=== PATIENT | female | born 1985 | race Caucasian/White ===

== ENCOUNTER 2016-08-03 14:20 | Emergency (ER) | payer MEDICAID ==
[2016-08-03] MEDS ORDERED: ENOXAPARIN 80 MG/0.8 ML SYRINGE SUBQ STA (17:45)
[2016-08-03] MEDS ORDERED: ENOXAPARIN 80 MG/0.8 ML SYRINGE SUBQ ONE (17:49)
== END 2016-08-03 17:56 | disposition home or self-care (01) ==
DX: I82.411 Acute embolism and thrombosis of right femoral vein (principal); I82.431 Acute embolism and thrombosis of right popliteal vein; D68.51 Activated protein C resistance; Z86.711 Personal history of pulmonary embolism; Z86.718 Personal history of other venous thrombosis and embolism; Z91.14 Patient's other noncompliance with medication regimen
CPT/HCPCS: 36415; 80048; 84703; 85025; 93971; 96372; 99283; 99284; J1650

== ENCOUNTER 2016-08-05 15:02 | Outpatient (CLI) | payer MEDICAID | END 2016-08-05 15:03 | disposition home or self-care (01) | DX: I82.90 Acute embolism and thrombosis of unspecified vein (principal) ==

== ENCOUNTER 2016-08-08 10:14 | Outpatient (CLI) | payer MEDICAID | END 2016-08-08 10:15 | disposition home or self-care (01) | DX: I82.90 Acute embolism and thrombosis of unspecified vein (principal) ==

== ENCOUNTER 2016-08-12 19:47 | Outpatient (CLI) | payer MEDICAID | END 2016-08-12 19:48 | disposition home or self-care (01) | DX: I82.90 Acute embolism and thrombosis of unspecified vein (principal) ==

== ENCOUNTER 2016-09-02 | Outpatient (CLI) | payer MEDICAID | END 2016-09-02 07:56 | disposition EMS.NT ==

== ENCOUNTER 2019-03-22 18:57 | Outpatient (CLI) | payer MEDICAID ==
--- NOTE | 2019-03-23 13:31 | Ultrasound Report ---
Reason: TEST POSITIVE Procedure Date: 03/22/2019 Accession Number: [id number] / [id number] Procedure: US - OB First Trimester CPT Code: FULL RESULT: EXAM: FIRST TRIMESTER OBSTETRIC ULTRASOUND (Less than 11 weeks) EXAM DATE: 03/22/2019 08:00 PM. CLINICAL HISTORY: Positive test. LMP: 01/18/2019. COMPARISONS: None. TECHNIQUE: Transabdominal and transvaginal ultrasound examination with static image documentation. CLINICAL DATES: EGA 9 weeks 0 days with NIRALI 10/25/2019 based on LMP/prior ultrasound/other. ASSESSMENT: Gestational Sac: Single intrauterine. Mean gestational sac diameter: 49 mm = 10 weeks 4 days. Embryo: CRL (crown-rump length) 31 mm = 9 weeks 6 days. Cardiac activity: 166 beats per minute. Yolk sac: 6 mm. Amniotic fluid: Not accurately assessed at this gestational age. Early placenta: Not visible at this gestational age. Other: No perigestational fluid collection demonstrated. MATERNAL STRUCTURES: Uterus: Anteverted/Retroverted. Unremarkable. Cervix: Closed. Right Ovary/Adnexa: The ovary measures 3.6 x 1 x 2.5 cm, volume 4.7 cc. Unremarkable. Left Ovary/Adnexa: The ovary measures 3.1 x 1.4 x 2.2 cm, volume 5.2 cc. Unremarkable. Free Fluid: None. Other: None. IMPRESSION: 1. Single viable intrauterine at EGA 9 weeks 6 days with NIRALI 10/19/2019 based on crown-rump length, which is concordant with clinical dates. 2. Assigned dating is NIRALI 9 weeks 0 days based on LMP. CHARLIE
== END 2019-03-22 18:58 | disposition home or self-care (01) ==
LOC: DI 18:57
PROVIDERS: ATTEND Obstetrics & Gynecology
DX: Z32.01 Encounter for pregnancy test, result positive (principal)
CPT/HCPCS: 76801; 76817

== ENCOUNTER 2019-04-21 08:00 | Outpatient (CLI) | payer MEDICAID ==
[2019-04-21 14:23] LABS: MUDS CUTOFF CONCENTRATIONS CUTOFF CONC BELOW:
[2019-04-21 14:26] LABS: BILIRUBIN,URINE NEGATIVE (NEGATIVE); GLUCOSE, URINE (UA) NEGATIVE (NEGATIVE); KETONES,URINE (UA) NEGATIVE (NEGATIVE); LEUKOCYTE ESTERASE, URINE NEGATIVE (NEGATIVE); NITRITE,URINE NEGATIVE (NEGATIVE); OCCULT BLOOD,URINE NEGATIVE (NEGATIVE); PH,URINE 6.5 PH (5.0-7.5); PROTEIN,URINE NEGATIVE (NEGATIVE); UROBILINOGEN,URINE 0.2 (NORMAL) E.U./dL (NORMAL)
[2019-04-21 14:34] LABS: BACTERIA,URINE None Seen /HPF (None Seen); CLARITY,URINE CLEAR (CLEAR); RBC,URINE None Seen /HPF (0-5); SQUAMOUS EPITHELIAL CELL,UR FEW Squamous (<= Few)
[2019-04-21 14:35] LABS: AMPHETAMINE SCREEN,URINE NEGATIVE (NEGATIVE); BENZODIAZEPINES SCREEN, URINE NEGATIVE (NEGATIVE); COCAINE SCREEN URINE NEGATIVE (NEGATIVE); METHADONE SCREEN, URINE NEGATIVE (NEGATIVE); METHAMPHETAMINES SCREEN, URINE NEGATIVE (NEGATIVE); OPIATE SCREEN, URINE NEGATIVE (NEGATIVE); OXYCODONE SCREEN, URINE NEGATIVE (NEGATIVE); PROPOXYPHENE SCREEN, URINE NEGATIVE (NEGATIVE); TRICYCLIC ANTIDEPRESSANT,URINE NEGATIVE (NEGATIVE)
[2019-04-21 21:40] LABS: TRICHOMONAS VAGINALIS DNA NEGATIVE (NEGATIVE)
== END 2019-04-21 23:59 | disposition home or self-care (01) ==
LOC: LAB.R 08:00
PROVIDERS: ATTEND Obstetrics & Gynecology
DX: Z34.80 Encounter for supervision of other normal pregnancy, unspecified trimester (principal); Z36.89 Encounter for other specified antenatal screening
CPT/HCPCS: 80306; 81001; 87086; 87491; 87591; 87661

== ENCOUNTER 2019-06-30 13:00 | Outpatient (CLI) | payer MEDICAID ==
[2019-06-30 13:27] LABS: BASOPHILS # (AUTO) 0.1 10^3/uL (0.0-0.1); BASOPHILS % (AUTO) 0.4 %; EOSINOPHILS # (AUTO) 0.3 10^3/uL (0.0-0.7); EOSINOPHILS % (AUTO) 2.3 %; HGB - HEMOGLOBIN 12.3 g/dL (12.0-16.0); LYMPHOCYTES # (AUTO) 2.1 10^3/uL (1.5-3.5); LYMPHOCYTES % (AUTO) 18.2 %; MEAN CORPUSCULAR HEMOGLOBIN 29.1 pg (27.0-31.0); MEAN CORPUSCULAR HGB CONC 33.6 g/dL (32.0-36.0); MEAN CORPUSCULAR VOLUME 86.7 fL (81.0-99.0); MEAN PLATELET VOLUME 9.7 fL (7.9-10.8); MONOCYTES # (AUTO) 0.7 10^3/uL (0.0-1.0); MONOCYTES % (AUTO) 6.1 %; NEUTROPHILS # (AUTO) 8.4 10^3/uL (1.5-6.6); NEUTROPHILS % (AUTO) 72.6 %; PLT - PLATELET COUNT 305 10^3/uL (130-450); RED BLOOD COUNT 4.22 10^6/uL (4.20-5.40); RED CELL DISTRIBUTION WIDTH 13.2 % (12.0-15.0); WHITE BLOOD COUNT 11.6 x10^3/uL (4.8-10.8)
[2019-06-30 13:33] LABS: PT - PROTHROMBIN TIME 10.9 secs (9.9-12.6)
[2019-06-30 14:10] LABS: HB2 TOTAL 12.3 g/dL; HEMOGLOBIN A1C 0.47 g/dL; HEMOGLOBIN A1C % 5.6 % (4.6-6.2)
[2019-07-01 13:30] LABS: HIV AG/AB 4TH GEN NON-REACTIVE (NON-REACTIVE)
[2019-07-01 13:46] LABS: HEPATITIS B SURFACE ANTIGEN NON-REACTIVE (NON-REACTIVE)
[2019-07-01 13:47] LABS: HEPATITIS C ANTIBODY NON-REACTIVE (NON-REACTIVE)
== END 2019-06-30 13:01 | disposition home or self-care (01) ==
LOC: LAB 13:00
PROVIDERS: ATTEND Obstetrics & Gynecology
DX: O09.90 Supervision of high risk pregnancy, unspecified, unspecified trimester (principal); O22.30 Deep phlebothrombosis in pregnancy, unspecified trimester; I82.811 Embolism and thrombosis of superficial veins of right lower extremity; Z3A.00 Weeks of gestation of pregnancy not specified; Z36.89 Encounter for other specified antenatal screening
CPT/HCPCS: 36415; 81599; 82950; 83036; 85025; 85610; 86592; 86762; 86803; 86850; 86900; 86901; 87340; 87389

== ENCOUNTER 2019-07-07 12:45 | Outpatient (CLI) | payer MEDICAID ==
--- NOTE | 2019-07-11 11:08 | Ultrasound Report ---
Reason: ENCOUNTER FOR OTHER SPECIFIED SCR Procedure Date: 07/07/2019 Accession Number: [id number] / [id number] Procedure: US - OB Detailed Eval CPT Code: Final Report FULL RESULT: EXAM: COMPLETE OBSTETRICAL ULTRASOUND EXAM DATE: 07/07/2019 02:17 PM. CLINICAL HISTORY: anatomic survey. COMPARISON: OB FIRST TRIMESTER 03/22/2019 7:17 PM. TECHNIQUE: Real-time sonographic evaluation of the fetus performed by the fleshing machine operator. Multiple franchise sales representative static images were saved for review. Additional transvaginal imaging to more accurately evaluate cervical length/placental position/etc. DATING: Established EGA 25 weeks 1 day with NIRALI 10/19/2019 based on first ultrasound, working due date. EGA 25 weeks 2 days with NIRALI 10/18/2019 based on the current ultrasound. GENERAL EVALUATION [place] . Cardiac activity: 139 bpm. movement: Visualized. Presentation: Cephalic. Placenta: Anterior position. No evidence for previa. Umbilical cord: 3 vessel cord. Central placental cord origin. Amniotic fluid: Subjectively normal. MVP 5.6 cm and LEEANN 19.8 cm. BIOMETRY Bi-Parietal Diameter (BPD): 6.19 cm, 25 weeks 1 day Head Circumference (HC): 23.49 cm, 25 weeks 4 days Abdominal Circumference (AC): 21.15 cm, 25 weeks 5 days Femur Length (FL): 4.45 cm, 24 weeks 5 days Estimated Weight: 790 g, 45th percentile for 25 weeks 1 day. ANATOMY The intracranial structures, profile, face/nose/lips, spine, 4 chamber heart and outflow tracts, stomach, abdominal wall and cord insertion, diaphragm, kidneys, bladder, and extremities were visualized and demonstrate no abnormality. MATERNAL STRUCTURES Uterus: Unremarkable. Cervix: Long and closed. Transabdominal length 4.5 cm. Right ovary/adnexa: Unremarkable. Left ovary/adnexa: Unremarkable. Free fluid: None. IMPRESSION: 1. [place] live intrauterine with gestational age 25 weeks 1 day based on first ultrasound and working due date. 2. Estimated weight is within expected limits for assigned dating. 3. Normal anatomic survey. No anatomic abnormalities are detected at this time. RADIA
== END 2019-07-07 12:46 | disposition home or self-care (01) ==
LOC: DI 12:45
PROVIDERS: ATTEND Obstetrics & Gynecology
DX: Z34.82 Encounter for supervision of other normal pregnancy, second trimester (principal)
CPT/HCPCS: 76811

== ENCOUNTER 2019-10-04 03:11 | Outpatient (CLI) | payer MEDICAID ==
[2019-10-04 03:26] VITALS: BP 132/75
--- NOTE | 2019-10-04 05:42 | HISTORY & PHYSICAL EXAMINATION ---
Admit History - Visit Reason Visit Reason: Contractions, Other (34yo at 37 4/7 weeks who presents with one week h/o non-productive cough and URI symptoms. No fevers. C/O RUQ pain along the costal margin when she coughs. No n/v/f/c or dysuria, no vag bleeding or fluid leak. No contractions, normal activity. Reports her whole family is similarly afflicted.) - : 3 Parity: 1 Premature: 0 Ectopic: 0 : 1 Care: positive: Other ([facility]; planning ) Risk/History: positive: Previous , Other (H/O Pulmonary embolism 15 yrs ago; not anticoagulated (pt declined)) Complications This : positive: Other (Maternal obesity) Smoking Status: Never smoker - Mother's Labs Mother's Blood Type: positive: A Mother's RH: positive: Positive Rubella Status: positive: Immune (HIV/RPR/HepB NR GC/chlam neg) Meds/Allgy - Home Medications Home Medications: Ambulatory Orders Medication Instructions Recorded Confirmed Enoxaparin [Lovenox] 77 mg SUBQ Q12H #10 syringe 08/03/16 Warfarin [Coumadin] 5 mg PO 1400 #14 tablet 08/03/16 - Allergies Allergies/Adverse Reactions: Allergies Allergy/AdvReac Type Severity Reaction Status Date / Time gabapentin [From Neurontin] Allergy Anaphylaxis Verified 08/03/16 14:32 Review of Systems - Other Findings Other Findings: As noted above Physical - Abdominal Exam Vital Signs: Temp Pulse Resp BP Pulse Ox 98.4 F 87 18 132/75 H 100 10/04/19 03:25 10/04/19 03:25 10/04/19 03:25 10/04/19 03:25 10/04/19 03:25 Contraction Frequency (min/apart): None Uterine Resting Tone: positive: Soft - Monitoring Strip Review: positive: Category I - Presentation Presentation: positive: Vertex (By scan; normal LEEANN, placenta normal left anterior fundal. Active fetus) - Vaginal Exam Membranes: positive: Membranes intact Plan for Labor - Plan For Labor Plan for Labor: 34yo at 37 4/7 weeks with URI and musculoskeletal pain with cough. No acute OB process. COVID swab done. Discussed strategies to mitigate cough with natural products. Encouraged to stay well hydrated. Plan DC home. F/U as scheduled. Exam - Exam Vital Signs: Vital Signs (72 hours) 10/04/19 03:25 Temperature 98.4 F Heart Rate [ 87 Monitoring electrodes] Respiratory 18 Rate Blood Pressure 132/75 H [Left Brachial artery] O2 Saturation 100 General: Alert, Oriented x3, Cooperative Lungs: Clear to auscultation, Normal air movement, Other (No rales or wheezing) Cardiovascular: Regular rate (3/6 systolic murmur) Abdomen: Normal bowel sounds (no CVA or rib tenderness), Soft, No tenderness Skin: No rashes Neurological: Normal gait Psych/Mental Status: Mental status NL
== END 2019-10-04 05:45 | disposition home or self-care (01) ==
LOC: WFO 03:11 → FBP 03:13 → WFO 05:45
PROVIDERS: ATTEND Obstetrics & Gynecology
DX: O99.513 Diseases of the respiratory system complicating pregnancy, third trimester (principal); J06.9 Acute upper respiratory infection, unspecified; O99.89 Other specified diseases and conditions complicating pregnancy, childbirth and the puerperium; R10.12 Left upper quadrant pain; Z3A.37 37 weeks gestation of pregnancy
CPT/HCPCS: 81599; 99213

== ENCOUNTER 2020-12-21 13:41 | Outpatient (CLI) | payer MEDICAID | END 2020-12-21 13:42 | disposition home or self-care (01) | LOC: LAB 13:41 | PROVIDERS: ATTEND Obstetrics & Gynecology | DX: O46.91 Antepartum hemorrhage, unspecified, first trimester (principal) | CPT/HCPCS: 36415; 84702 ==

== ENCOUNTER 2020-12-26 11:03 | Outpatient (CLI) | payer MEDICAID ==
[2020-12-26 11:38] LABS: BASOPHILS % (AUTO) 0.6 %; EOSINOPHILS # (AUTO) 0.1 10^3/uL (0.0-0.7); EOSINOPHILS % (AUTO) 1.7 %; HCT - HEMATOCRIT 42.9 % (37.0-47.0); HGB - HEMOGLOBIN 14.4 g/dL (12.0-16.0); LYMPHOCYTES # (AUTO) 2.3 10^3/uL (1.5-3.5); LYMPHOCYTES % (AUTO) 32.7 %; MEAN CORPUSCULAR HGB CONC 33.6 g/dL (32.0-36.0); MEAN CORPUSCULAR VOLUME 83.5 fL (81.0-99.0); MEAN PLATELET VOLUME 9.5 fL (7.9-10.8); MONOCYTES # (AUTO) 0.5 10^3/uL (0.0-1.0); MONOCYTES % (AUTO) 7.6 %; NEUTROPHILS # (AUTO) 4.1 10^3/uL (1.5-6.6); NEUTROPHILS % (AUTO) 57.1 %; PLT - PLATELET COUNT 361 10^3/uL (130-450); RED BLOOD COUNT 5.14 10^6/uL (4.20-5.40); RED CELL DISTRIBUTION WIDTH 12.9 % (12.0-15.0); WHITE BLOOD COUNT 7.1 x10^3/uL (4.8-10.8)
[2020-12-27 14:01] LABS: HIV AG/AB 4TH GEN NON-REACTIVE (NON-REACTIVE)
[2020-12-27 14:37] LABS: HEPATITIS C ANTIBODY NON-REACTIVE (NON-REACTIVE)
[2020-12-27 14:51] LABS: HEPATITIS B SURFACE ANTIGEN NON-REACTIVE (NON-REACTIVE)
== END 2020-12-26 11:04 | disposition home or self-care (01) ==
LOC: LAB 11:03
PROVIDERS: ATTEND Obstetrics & Gynecology
DX: O99.419 Diseases of the circulatory system complicating pregnancy, unspecified trimester (principal); I82.811 Embolism and thrombosis of superficial veins of right lower extremity; Z32.01 Encounter for pregnancy test, result positive; Z36.89 Encounter for other specified antenatal screening
CPT/HCPCS: 36415; 81240; 81241; 81599; 84702; 85025; 85613; 85730; 86147; 86592; 86762; 86787; 86803; 86850; 86900; 86901; 87340; 87389

== ENCOUNTER 2020-12-27 13:45 | Emergency (ER) | payer MEDICAID ==
--- NOTE | 2020-12-27 14:03 | ED Physician Documentation ---
PD HPI FEMALE - Stated complaint Stated Complaint: FEMALE - Chief complaint Chief Complaint: Abd Pain - History obtained from History obtained from: Patient PD PAST MEDICAL HISTORY - Past Surgical History Past Surgical History: Yes - Present Medications Home Medications: Ambulatory Orders Medication Instructions Recorded Confirmed Enoxaparin [Lovenox] 77 mg SUBQ Q12H #10 syringe 08/03/16 Warfarin [Coumadin] 5 mg PO 1400 #14 tablet 08/03/16 - Allergies Allergies/Adverse Reactions: Allergies Allergy/AdvReac Type Severity Reaction Status Date / Time gabapentin [From Neurontin] Allergy Anaphylaxis Verified 12/27/20 13:54 - Social History Does the pt smoke?: No Smoking Status: Never smoker Does the pt drink ETOH?: No Does the pt have substance abuse?: No Results - Vitals Vitals: Vital Signs - 24 hr 12/27/20 13:54 Temperature 36.5 C Heart Rate 67 Respiratory 18 Rate Blood Pressure 134/75 H O2 Saturation 100 Oxygen O2 Source Room air
--- NOTE | 2020-12-27 14:21 | ED Physician Documentation ---
History of Present Illness - Stated complaint Stated Complaint: FEMALE - Chief complaint Chief Complaint: Abd Pain - History obtained from History obtained from: Patient - History of Present Illness Timing: Today Pain level max: 5 Pain level now: 0 - Additonal information Additional information: 35-year-old female presents to the emergency department vaginal bleeding today. She states that she is , unknown how far along she is. She states that when she saw the OB yesterday they did an ultrasound in the office that said that the baby was "small". They could not see the heartbeat and were unsure if the was viable, she had an ultrasound scheduled for today. She had increased bleeding today so came here for evaluation instead. Currently the bleeding has decreased. Cramping has resolved. She is 4, para 2. Review of Systems Ten Systems: 10 systems reviewed and negative Constitutional: denies: Fever, Chills GI: denies: Vomiting, Diarrhea : reports: Now EGA. denies: Dysuria, Frequency, Hesitancy Skin: denies: Rash Musculoskeletal: denies: Neck pain, Back pain Neurologic: denies: Headache PD PAST MEDICAL HISTORY - Past Medical History Past Medical History: No - Past Surgical History Past Surgical History: Yes - Present Medications Home Medications: Ambulatory Orders Medication Instructions Recorded Confirmed No Known Home Medications 12/27/20 12/27/20 - Allergies Allergies/Adverse Reactions: Allergies Allergy/AdvReac Type Severity Reaction Status Date / Time gabapentin [From Neurontin] Allergy Anaphylaxis Verified 12/27/20 13:54 - Living Situation Living Arrangement: reports: At home - Social History Does the pt smoke?: No Smoking Status: Never smoker Does the pt drink ETOH?: No Does the pt have substance abuse?: No PD ED PE NORMAL - Vitals Vital signs reviewed: Yes - General General: Alert and oriented X 3, No acute distress, Well developed/nourished - HEENT HEENT: Moist mucous membranes - Neck Neck: Supple, no meningeal sign - Cardiac Cardiac: RRR, Strong equal pulses - Respiratory Respiratory: No respiratory distress, Clear bilaterally - Abdomen Abdomen: Soft, Non tender, Non distended - Derm Derm: Warm and dry - Extremities Extremities: No edema - Neuro Neuro: Alert and oriented X 3 - Psych Psych: Normal mood, Normal affect Results - Vitals Vitals: Vital Signs - 24 hr 12/27/20 12/27/20 13:54 16:09 Temperature 36.5 C 37.0 C Heart Rate 67 66 Respiratory 18 12 Rate Blood Pressure 134/75 H 125/56 L O2 Saturation 100 100 Oxygen O2 Source Room air - Labs Labs: Laboratory Tests 12/27/20 12/27/20 12/27/20 14:23 14:23 14:23 WBC 7.9 RBC 4.51 Hgb 12.8 Hct 38.3 MCV 84.9 MCH 28.4 MCHC 33.4 RDW 13.1 Plt Count 306 MPV 9.5 Neut # (Auto) 4.3 Lymph # (Auto) 2.5 [place] # (Auto) 0.8 Eos # (Auto) 0.2 Baso # (Auto) 0.0 Absolute Nucleated RBC 0.00 Nucleated RBC % 0.0 Sodium 141 Potassium 3.9 Chloride 109 Carbon Dioxide 25 Anion Gap 7.0 BUN 15 Creatinine 0.4 Estimated GFR (MDRD) 183 Glucose 104 H Calcium 9.3 Total Bilirubin 0.4 AST 15 ALT 22 Alkaline Phosphatase 68 Total Protein 6.7 Albumin 3.8 Globulin 2.9 Albumin/Globulin Ratio 1.3 Lipase 35 HCG, Quant 23992.00 Urine Color Urine Clarity Urine pH Ur Specific [place] Urine Protein Urine Glucose (UA) Urine Ketones Urine Occult Blood Urine Nitrite Urine Bilirubin Urine Urobilinogen Ur Leukocyte Esterase Urine RBC Urine WBC Ur Squamous Epith Cells Urine Bacteria Ur Microscopic Review Urine Culture Comments 12/27/20 14:49 WBC RBC Hgb Hct MCV MCH MCHC RDW Plt Count MPV Neut # (Auto) Lymph # (Auto) [place] # (Auto) Eos # (Auto) Baso # (Auto) Absolute Nucleated RBC Nucleated RBC % Sodium Potassium Chloride Carbon Dioxide Anion Gap BUN Creatinine Estimated GFR (MDRD) Glucose Calcium Total Bilirubin AST ALT Alkaline Phosphatase Total Protein Albumin Globulin Albumin/Globulin Ratio Lipase HCG, Quant Urine Color LT RED Urine Clarity SL. CLOUDY Urine pH 5.0 Ur Specific [place] 1.010 Urine Protein NEGATIVE Urine Glucose (UA) NEGATIVE Urine Ketones NEGATIVE Urine Occult Blood LARGE H Urine Nitrite NEGATIVE Urine Bilirubin NEGATIVE Urine Urobilinogen 0.2 (NORMAL) Ur Leukocyte Esterase NEGATIVE Urine RBC 11-25 H Urine WBC 0-3 Ur Squamous Epith Cells RARE Squamous Urine Bacteria Rare Ur Microscopic Review INDICATED Urine Culture Comments NOT INDICATED PD MEDICAL DECISION MAKING - ED course Complexity details: reviewed results, re-evaluated patient, considered differential, d/w patient ED course: 35-year-old female with what appears to be a miscarriage today. Her hCG has significantly decreased. There was reportedly an IUP yesterday and no IUP today. We will have her follow-up with OB for further care. No evidence of ectopic. Patient counseled regarding signs and symptoms for which I believe and urgent re-evaluation would be necessary. Patient with good understanding of and agreement to plan and is comfortable going home at this time This document was made in part using voice recognition software. While efforts are made to proofread this document, sound alike and grammatical errors may occur. IMPRESSION: Ovoid heterogeneous material within the endometrial canal, measuring up to 1.5 cm in AP dimension and estimated approximately 3.9 cm craniocaudad. This is likely clot but could contain additional content such as products of conception. Correlation with quantitative beta hCG likely is warranted. Please also note that currently no evidence of ectopic is found but depending on serial quantitative beta hCG values likelihood of ectopic versus spontaneous in progress can't be established. The ordering health care provider was notified of these findings. Departure - Departure Disposition: 01 Home, Self Care Clinical Impression: Miscarriage Condition: Good Instructions: ED Miscarriage Incom Follow-Up: Melanie Chen MD [Primary Care Provider] - Within 3 Days Comments: It is important to follow-up with Dr. Chen for a repeat hCG. Your hCG is fallen from 23,000 to 14,000 today. It does appear that you are having a miscarriage on your sound. Return if you worsen. Discharge Date/Time: 12/27/20 16:21
[2020-12-27 14:28] LABS: BASOPHILS % (AUTO) 0.4 %; EOSINOPHILS # (AUTO) 0.2 10^3/uL (0.0-0.7); EOSINOPHILS % (AUTO) 2.3 %; HCT - HEMATOCRIT 38.3 % (37.0-47.0); HGB - HEMOGLOBIN 12.8 g/dL (12.0-16.0); LYMPHOCYTES # (AUTO) 2.5 10^3/uL (1.5-3.5); LYMPHOCYTES % (AUTO) 32.1 %; MEAN CORPUSCULAR HEMOGLOBIN 28.4 pg (27.0-31.0); MEAN CORPUSCULAR HGB CONC 33.4 g/dL (32.0-36.0); MEAN CORPUSCULAR VOLUME 84.9 fL (81.0-99.0); MEAN PLATELET VOLUME 9.5 fL (7.9-10.8); MONOCYTES # (AUTO) 0.8 10^3/uL (0.0-1.0); MONOCYTES % (AUTO) 9.8 %; NEUTROPHILS # (AUTO) 4.3 10^3/uL (1.5-6.6); PLT - PLATELET COUNT 306 10^3/uL (130-450); RED BLOOD COUNT 4.51 10^6/uL (4.20-5.40); RED CELL DISTRIBUTION WIDTH 13.1 % (12.0-15.0); WHITE BLOOD COUNT 7.9 x10^3/uL (4.8-10.8)
[2020-12-27 14:43] LABS: ALBUMIN 3.8 g/dL (3.2-5.5); ALBUMIN/GLOBULIN RATIO 1.3 (1.0-2.2); BILIRUBIN,TOTAL 0.4 mg/dL (0.2-1.0); CALCIUM 9.3 mg/dL (8.5-10.3); CREATININE 0.4 mg/dL (0.4-1.0); POTASSIUM 3.9 mmol/L (3.5-5.0); TOTAL PROTEIN 6.7 g/dL (6.7-8.2)
--- OUTSIDE RECORDS SUMMARY | 2020-12-27 14:44 | EXTERNAL MEDICAL SUMMARY RPT | Continuity of Care Document ---
:1985 Demographics Phone Unavailable Preferred Language Unknown Marital Status Unknown Congregational Affiliation Unknown Race Unknown Ethnic Group Unknown Author Organization [facility] Address [address] [place] [address] Phone Allergies Encounters Medications Problems Results
[2020-12-27 14:56] LABS: BILIRUBIN,URINE NEGATIVE (NEGATIVE); GLUCOSE, URINE (UA) NEGATIVE (NEGATIVE); KETONES,URINE (UA) NEGATIVE (NEGATIVE); LEUKOCYTE ESTERASE, URINE NEGATIVE (NEGATIVE); NITRITE,URINE NEGATIVE (NEGATIVE); OCCULT BLOOD,URINE LARGE (NEGATIVE); PROTEIN,URINE NEGATIVE (NEGATIVE); UROBILINOGEN,URINE 0.2 (NORMAL) E.U./dL (NORMAL)
[2020-12-27 14:59] LABS: CLARITY,URINE SL. CLOUDY (CLEAR)
[2020-12-27 15:01] LABS: BACTERIA,URINE Rare /HPF (None Seen); SQUAMOUS EPITHELIAL CELL,UR RARE Squamous (<= Few); WBC,URINE 0-3 /HPF (0-5)
--- NOTE | 2020-12-27 16:04 | Ultrasound Report ---
PROCEDURE: OB First Trimester w/TV INDICATIONS: pelvic pain, cramping, vaginal bleeding, +preg OUTSIDE/PRIOR DATING DATA: Last menstrual period (LMP): Not available. LMP-based estimated date of delivery (NIRALI): Not available. First dating scan (date and location): This study. Estimated date of delivery (NIRALI) from first dating scan: Viable gestation is not yet identified.. TECHNIQUE: Real-time scanning was performed of the fetus and maternal pelvic organs, with image documentation. Endovaginal scanning was also performed to better visualize the fetus and maternal ovaries. COMPARISON: None FINDINGS: An intrauterine gestation is not found. There is thickening of the endometrial space measu ring up to 1.5 cm containing heterogeneous internal ovoid material suggestive of clot. Embryo: Not seen. Measurement variability in dating: +/- 4 weeks by LMP, +/- 7 days by mean sac diameter (use before 6 weeks gestation if crown-rump length not able to be measured), +/- 5 days by crown-rump length (6-12 weeks gestation). Maternal organs: Ovaries normal. IMPRESSION: Ovoid heterogeneous material within the endometrial canal, measuring up to 1.5 cm in AP dimension and estimated approximately 3.9 cm craniocaudad. This is likely clot but could contain additional conten t such as products of conception. Correlation with quantitative beta hCG likely is warranted. Please also note that currently no evidence of ectopic is found but depending on serial quantitati ve beta hCG values likelihood of ectopic versus spontaneous in progress can't be e stablished. The ordering health care provider was notified of these findings. Reviewed by: Catracho Katz MD on 12/27/2020 4:03 PM PDT Approved by: Catracho Katz MD on 12/27/2020 4:03 PM PDT Station ID: [id number]
[2020-12-27 16:09] VITALS: BP 125/56
== END 2020-12-27 16:21 | disposition home or self-care (01) ==
LOC: ED 13:45
DX: O03.9 Complete or unspecified spontaneous abortion without complication (principal)
CPT/HCPCS: 36415; 80053; 81001; 81003; 83690; 84702; 85025; 87086; 99284

== ENCOUNTER 2021-08-20 18:55 | Outpatient (CLI) | payer MEDICAID | END 2021-08-20 18:56 | disposition EMS.NT | LOC: EMS 18:55 | DX: R51.9 Headache, unspecified (principal); R06.00 Dyspnea, unspecified ==

== ENCOUNTER 2022-02-27 10:55 | Outpatient (CLI) | payer MEDICAID ==
[2022-02-27 21:58] LABS: BACTERIAL VAGINOSIS DNA NEGATIVE (NEGATIVE); CANDIDA GLABRATA DNA NEGATIVE (NEGATIVE); CANDIDA GROUP DNA NEGATIVE (NEGATIVE); CANDIDA KRUSEI DNA NEGATIVE (NEGATIVE); TRICHOMONAS VAGINALIS DNA NEGATIVE (NEGATIVE)
[2022-02-27 22:56] LABS: CHLAMYDIA TRACHOMATIS DNA NEGATIVE (NEGATIVE); NEISSERIA GONORRHOEAE DNA NEGATIVE (NEGATIVE)
== END 2022-02-27 23:59 | disposition home or self-care (01) ==
LOC: LAB 10:55
PROVIDERS: ATTEND Nurse Practitioner
DX: Z11.3 Encounter for screening for infections with a predominantly sexual mode of transmission (principal); R07.89 Other chest pain; E05.90 Thyrotoxicosis, unspecified without thyrotoxic crisis or storm
CPT/HCPCS: 36415; 81514; 81599; 84436; 84443; 84481; 86317; 86592; 86695; 86696; 86803; 87389; 87491; 87591; 87661; 93005

== ENCOUNTER 2022-11-13 20:29 | Outpatient (CLI) | payer MEDICAID | END 2022-11-13 20:30 | disposition critical access hospital (66) | LOC: EMS 20:29 | DX: R07.9 Chest pain, unspecified (principal); R20.0 Anesthesia of skin; F41.9 Anxiety disorder, unspecified | CPT/HCPCS: A0425; A0429; A0999 ==

== ENCOUNTER 2022-11-13 20:50 | Emergency (ER) | payer MEDICAID ==
--- NOTE | 2022-11-13 21:02 | ED Physician Documentation ---
History of Present Illness - Stated complaint Stated Complaint: CHEST PX - Chief complaint Chief Complaint: Cardiac - History obtained from History obtained from: Patient - Additonal information Additional information: She has no history of heart problems. She did have a PE around 2006. Sounds like it was probably unprovoked. She is not currently on anticoagulation. She was playing with her kids and developed substernal chest pressure that was mild radiating to the left arm with numbness of the left arm starting around 4:00 today. It lasted around 3 hours. It is gone now. She denies pedal edema or calf pain. On no prescription medications but does take [id number] niacin to help her sleep. She states absolutely no possibility of . 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 - Present Medications Home Medications: Ambulatory Orders Medication Instructions Recorded Confirmed No Known Home Medications 12/27/20 12/27/20 - Allergies Allergies/Adverse Reactions: Allergies Allergy/AdvReac Type Severity Reaction Status Date / Time gabapentin [From Neurontin] Allergy Anaphylaxis Verified 11/13/22 20:59 - Social History Does the pt smoke?: No Smoking Status: Never smoker Does the pt drink ETOH?: No Does the pt have substance abuse?: No - Immunizations Immunizations are current?: Yes PD ED PE NORMAL - Vitals Vital signs reviewed: Yes - General General: Alert and oriented X 3, No acute distress - Cardiac Cardiac: RRR, No murmur - Respiratory Respiratory: No respiratory distress, Clear bilaterally - Abdomen Abdomen: Non tender - Extremities Extremities: No edema, No calf tenderness / cord - Neuro Neuro: Alert and oriented X 3, Normal speech Results - Vitals Vitals: Vital Signs - 24 hr 11/13/22 11/13/22 20:45 21:47 Temperature 37.3 C Heart Rate 97 90 Respiratory 12 15 Rate Blood Pressure 151/111 H 131/96 H O2 Saturation 98 98 Oxygen O2 Source Room air - EKG (time done) 6024 EKG releavant findings:: EKG personally interpreted by author of this note. Relevant findings are: Rate: Rate (enter#) (80) Rhythm: NSR [place]: Normal Intervals: Normal [place] QRS: Normal Ischemia: Normal ST segments - Labs Labs: Laboratory Tests 11/13/22 11/13/22 11/13/22 21:06 21:06 21:06 WBC 7.6 RBC 4.93 Hgb 13.4 Hct 40.5 MCV 82.2 MCH 27.2 MCHC 33.1 RDW 12.5 Plt Count 431 MPV 9.6 Neut # (Auto) 3.9 Lymph # (Auto) 2.8 [place] # (Auto) 0.7 Eos # (Auto) 0.2 Baso # (Auto) 0.0 Absolute Nucleated RBC 0.00 Nucleated RBC % 0.0 Sodium 138 Potassium 3.8 Chloride 102 Carbon Dioxide 26 Anion Gap 10.0 BUN 13 Creatinine 0.5 Estimated GFR (MDRD) 140 Glucose 128 H Calcium 9.0 Total Bilirubin 0.3 AST 21 ALT 32 Alkaline Phosphatase 58 Troponin I High Sens 3.6 Total Protein 7.4 Albumin 3.7 Globulin 3.7 Albumin/Globulin Ratio 1.0 Lipase 82 H PD Medical Decision Making - ED course ED course: 37-year-old woman with unprovoked PE in the past presents with resolved 3 hours of chest pain. EKG is nonischemic. Troponin negative/normal. CBC and CMP negative/normal. Given her history CT angiography was done. I discussed with her that given previous unprovoked DVTs multiple, she should probably be on anticoagulation for life. She already knew that this was the predominant medical opinion but eschews that. Her CTA was diagnostic for main and segmental pulmonary arteries, negative for large PE. Given that her pain is gone I do not think further work-up is necessary. Departure - Departure Disposition: 01 Home, Self Care Clinical Impression: Atypical chest pain Condition: Good Record reviewed to determine appropriate education?: Yes Instructions: ED Chest Pain Atypical Unkn Cause Comments: Call your doctor to arrange a follow-up appointment, make the next available appointment. In the interim, return anytime if worse or if new symptoms develop.
[2022-11-13] MEDS ORDERED: iohexoL-300 100 ML VIAL ONE (21:08)
[2022-11-13 21:11] LABS: BASOPHILS % (AUTO) 0.4 %; EOSINOPHILS # (AUTO) 0.2 10^3/uL (0.0-0.7); EOSINOPHILS % (AUTO) 2.1 %; HCT - HEMATOCRIT 40.5 % (37.0-47.0); HGB - HEMOGLOBIN 13.4 g/dL (12.0-16.0); LYMPHOCYTES # (AUTO) 2.8 10^3/uL (1.5-3.5); LYMPHOCYTES % (AUTO) 37.2 %; MEAN CORPUSCULAR HEMOGLOBIN 27.2 pg (27.0-31.0); MEAN CORPUSCULAR HGB CONC 33.1 g/dL (32.0-36.0); MEAN CORPUSCULAR VOLUME 82.2 fL (81.0-99.0); MEAN PLATELET VOLUME 9.6 fL (7.9-10.8); MONOCYTES # (AUTO) 0.7 10^3/uL (0.0-1.0); MONOCYTES % (AUTO) 9.6 %; NEUTROPHILS # (AUTO) 3.9 10^3/uL (1.5-6.6); NEUTROPHILS % (AUTO) 50.4 %; PLT - PLATELET COUNT 431 10^3/uL (130-450); RED BLOOD COUNT 4.93 10^6/uL (4.20-5.40); RED CELL DISTRIBUTION WIDTH 12.5 % (12.0-15.0); WHITE BLOOD COUNT 7.6 x10^3/uL (4.8-10.8)
[2022-11-13 21:26] LABS: ALBUMIN 3.7 g/dL (3.2-5.5); BILIRUBIN,TOTAL 0.3 mg/dL (0.2-1.0); CREATININE 0.5 mg/dL (0.4-1.0); POTASSIUM 3.8 mmol/L (3.5-5.0); TOTAL PROTEIN 7.4 g/dL (6.7-8.2)
[2022-11-13] MEDS ORDERED: iohexoL-300 100 ML VIAL IVP ONE (22:30)
--- NOTE | 2022-11-13 23:11 | CT Report ---
PROCEDURE: ANGIO CHEST W/WO INDICATIONS: chest pain, pe protocol, can do without labs CONTRAST: Omni 300 100ml TECHNIQUE: After the administration of intravenous contrast, 2 mm axial images were acquired from the pulmonary apices to the posterior costophrenic angles during the arterial phase. In addition, 1 mm lung kernel and 5 mm soft tissue kernel reconstructions were performed. 3-dimensional coronal oblique maximum int ensity projection (MIP) reformats, 8 mm axial MIP, and 5 mm coronal and sagittal MPR reformats were t hen performed through the thorax. For radiation dose reduction, the following was used: automated exp osure control, adjustment of mA and/or kV according to patient size. COMPARISON: None. FINDINGS: Image quality: There is markedly suboptimal opacification of the pulmonary arteries. Pulmonary arteries: Pulmonary arteries are normal in size with markedly suboptimal contrast opacific ation. No filling defects identified within the main or lobar pulmonary arteries. There is nondiagnos tic evaluation of segmental and subsegmental branches. Lower Neck: No lymphadenopathy by size criteria. Thyroid: Visualized thyroid demonstrates no discrete nodules. Axillae: No lymphadenopathy by size criteria. Chest Wall: Unremarkable. Bones: Visualized osseous structures demonstrate no suspicious lesions. Lungs and Airways: No acute consolidation. No suspicious pulmonary nodules. The trachea and central airways are patent. Pleura: No pneumothorax or pleural effusions. Heart: Heart size is normal. No pericardial effusion. Thoracic Vessels: The thoracic aorta is normal in size. Mediastinum and [place]: No lymphadenopathy by size criteria. Esophagus: No wall thickening. No hiatal hernia. Abdomen: Visualized upper abdominal solid organs appear normal in the early arterial phase of enhanc ement. IMPRESSION: 1. Suboptimal opacification of the pulmonary arteries markedly limiting evaluation. No central pulmon dottie embolism within the main or lobar pulmonary arteries but evaluation of segmental and subsegmental branches is nondiagnostic. 2. No acute airspace consolidation. Reviewed by: Tal Suh MD on 11/13/2022 11:10 PM PDT Approved by: Tal Suh MD on 11/13/2022 11:10 PM PDT Station ID: [id number]
[2022-11-13 23:25] VITALS: BP 141/99
== END 2022-11-13 23:32 | disposition home or self-care (01) ==
LOC: EDUNIT# → ED 20:50
DX: R07.89 Other chest pain (principal)
CPT/HCPCS: 36415; 80053; 83690; 84484; 85025; 93005; 99283; 99284

== ENCOUNTER 2022-12-16 19:29 | Emergency (ER) | payer MEDICAID ==
[2022-12-16 20:10] LABS: BASOPHILS % (AUTO) 0.4 %; EOSINOPHILS # (AUTO) 0.1 10^3/uL (0.0-0.7); EOSINOPHILS % (AUTO) 1.7 %; HCT - HEMATOCRIT 40.9 % (37.0-47.0); HGB - HEMOGLOBIN 13.5 g/dL (12.0-16.0); LYMPHOCYTES % (AUTO) 43.1 %; MEAN CORPUSCULAR HEMOGLOBIN 27.4 pg (27.0-31.0); MEAN CORPUSCULAR VOLUME 83.1 fL (81.0-99.0); MEAN PLATELET VOLUME 9.2 fL (7.9-10.8); MONOCYTES # (AUTO) 0.5 10^3/uL (0.0-1.0); MONOCYTES % (AUTO) 6.6 %; NEUTROPHILS # (AUTO) 3.3 10^3/uL (1.5-6.6); NEUTROPHILS % (AUTO) 47.9 %; PLT - PLATELET COUNT 338 10^3/uL (130-450); RED BLOOD COUNT 4.92 10^6/uL (4.20-5.40); RED CELL DISTRIBUTION WIDTH 13.2 % (12.0-15.0); WHITE BLOOD COUNT 6.9 x10^3/uL (4.8-10.8)
[2022-12-16 20:35] LABS: ACETAMINOPHEN < 10 ug/mL (10-30); ALBUMIN 3.9 g/dL (3.2-5.5); ALBUMIN/GLOBULIN RATIO 1.1 (1.0-2.2); ALKALINE PHOSPHATASE 48 IU/L (42-121); ALT ALANINE AMINOTRANSFERASE 23 IU/L (10-60); AST ASPARTATE AMINOTRANSFERASE 16 IU/L (10-42); BILIRUBIN,TOTAL 0.4 mg/dL (0.2-1.0); BUN - BLOOD UREA NITROGEN 16 mg/dL (6-20); CALCIUM 8.7 mg/dL (8.5-10.3); CARBON DIOXIDE - CO2 21 mmol/L (21-32); CHLORIDE 111 mmol/L (101-111); CREATININE 0.4 mg/dL (0.4-1.0); ETOH - ETHANOL 147.5 mg/dL; GFR - MDRD 181 (>89); GLUCOSE 103 mg/dL (70-100); LIPASE 156 U/L (22-51); SALICYLATE < 6.0 mg/dL; SODIUM 141 mmol/L (135-145); TOTAL PROTEIN 7.3 g/dL (6.7-8.2)
[2022-12-16 21:07] LABS: MUDS CUTOFF CONCENTRATIONS CUTOFF CONC BELOW:
[2022-12-16 21:09] LABS: BILIRUBIN,URINE NEGATIVE (NEGATIVE); GLUCOSE, URINE (UA) NEGATIVE (NEGATIVE); KETONES,URINE (UA) NEGATIVE (NEGATIVE); LEUKOCYTE ESTERASE, URINE NEGATIVE (NEGATIVE); NITRITE,URINE NEGATIVE (NEGATIVE); OCCULT BLOOD,URINE MODERATE (NEGATIVE); PROTEIN,URINE NEGATIVE (NEGATIVE); UROBILINOGEN,URINE 0.2 (NORMAL) E.U./dL (NORMAL)
--- NOTE | 2022-12-16 21:17 | ED Physician Documentation ---
PD HPI MHE - Stated complaint Stated Complaint: MHE - Chief complaint Chief Complaint: MHE - Additional information Additional information: Patient is brought to ED for odd behavior. Per police, passersby called 911 due to patient yelling and exhibiting odd behaviors in public tonight. Police report that upon their arrival, patient initially was flailing on ground, then ran away and ran into thorny bushes from which police had to extricate her. No report of patient making SI/HI statements. On my HPI, patient says she has been drinking alcohol and she feels that her behavior was a combination of the alcohol, concerns regarding an ex, and frustration at having just lost her wi-fi signal shortly before police arrived. She strongly denies SI/HI/AH/VH on my HPI. She denies drug use. She says she does not take any prescription medications for mental health reasons nor is she supposed to be (such as meds being prescribed but not taking them). Review of Systems Psychiatric: reports: Anxiety. denies: Depressed, Suicidal, Homicidal, Hallucinations, Delusions PD PAST MEDICAL HISTORY - Past Medical History Cardiovascular: Pulmonary embolism - Past Surgical History Past Surgical History: Yes /[employer]: section - Present Medications Home Medications: Ambulatory Orders Medication Instructions Recorded Confirmed No Known Home Medications 12/27/20 12/27/20 - Allergies Allergies/Adverse Reactions: Allergies Allergy/AdvReac Type Severity Reaction Status Date / Time gabapentin [From Neurontin] Allergy Anaphylaxis Verified 12/16/22 19:44 - Social History Does the pt smoke?: No Smoking Status: Never smoker Does the pt drink ETOH?: No Does the pt have substance abuse?: No - Immunizations Immunizations are current?: Yes - POLST Patient has POLST: No PD ED PE NORMAL - Vitals Vital signs reviewed: Yes - General General: Alert and oriented X 3, No acute distress, Well developed/nourished - HEENT HEENT: Atraumatic, Moist mucous membranes - Neck Neck: Supple, no meningeal sign - Cardiac Cardiac: RRR, No murmur - Respiratory Respiratory: No respiratory distress, Clear bilaterally - Neuro Neuro: Alert and oriented X 3, 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, No motor deficit, No sensory deficit, Normal speech Eye Opening: Spontaneous Motor: Obeys Commands Verbal: Oriented GCS Score: 15 - Psych Psych: Normal mood, Normal affect Results - Vitals Vitals: Oxygen O2 Source Room air - Labs Labs: Laboratory Tests 12/16/22 12/16/22 12/16/22 19:40 20:06 20:06 WBC 6.9 RBC 4.92 Hgb 13.5 Hct 40.9 MCV 83.1 MCH 27.4 MCHC 33.0 RDW 13.2 Plt Count 338 MPV 9.2 Neut # (Auto) 3.3 Lymph # (Auto) 3.0 Carver # (Auto) 0.5 Eos # (Auto) 0.1 Baso # (Auto) 0.0 Absolute Nucleated RBC 0.00 Nucleated RBC % 0.0 Sodium 141 Potassium 4.0 Chloride 111 Carbon Dioxide 21 Anion Gap 9.0 BUN 16 Creatinine 0.4 Estimated GFR (MDRD) 181 Glucose 103 H Calcium 8.7 Total Bilirubin 0.4 AST 16 ALT 23 Alkaline Phosphatase 48 Total Protein 7.3 Albumin 3.9 Globulin 3.4 Albumin/Globulin Ratio 1.1 Lipase 156 H TSH Urine Color LIGHT YELLOW Urine Clarity CLEAR Urine pH 5.0 Ur Specific [place] <=1.005 Urine Protein NEGATIVE Urine Glucose (UA) NEGATIVE Urine Ketones NEGATIVE Urine Occult Blood MODERATE H Urine Nitrite NEGATIVE Urine Bilirubin NEGATIVE Urine Urobilinogen 0.2 (NORMAL) Ur Leukocyte Esterase NEGATIVE Urine RBC 6-10 H Urine WBC 0-3 Ur Squamous Epith Cells MANY Squamous H Urine Bacteria Few Ur Microscopic Review INDICATED Urine Culture Comments NOT INDICATED Urine HCG, Qual NEGATIVE Salicylates < 6.0 Urine Opiates Screen NEGATIVE Ur Oxycodone Screen NEGATIVE Urine Methadone Screen NEGATIVE Ur Propoxyphene Screen NEGATIVE Acetaminophen < 10 L Ur Barbiturates Screen NEGATIVE Ur Tricyclics Screen NEGATIVE Ur Phencyclidine Scrn NEGATIVE Ur Amphetamine Screen NEGATIVE U Methamphetamines Scrn NEGATIVE U Benzodiazepines Scrn NEGATIVE Urine Cocaine Screen NEGATIVE U Cannabinoids Screen NEGATIVE Ethyl Alcohol 147.5 12/16/22 20:06 WBC RBC Hgb Hct MCV MCH MCHC RDW Plt Count MPV Neut # (Auto) Lymph # (Auto) Carver # (Auto) Eos # (Auto) Baso # (Auto) Absolute Nucleated RBC Nucleated RBC % Sodium Potassium Chloride Carbon Dioxide Anion Gap BUN Creatinine Estimated GFR (MDRD) Glucose Calcium Total Bilirubin AST ALT Alkaline Phosphatase Total Protein Albumin Globulin Albumin/Globulin Ratio Lipase TSH < 0.08 L Urine Color Urine Clarity Urine pH Ur Specific [place] Urine Protein Urine Glucose (UA) Urine Ketones Urine Occult Blood Urine Nitrite Urine Bilirubin Urine Urobilinogen Ur Leukocyte Esterase Urine RBC Urine WBC Ur Squamous Epith Cells Urine Bacteria Ur Microscopic Review Urine Culture Comments Urine HCG, Qual Salicylates Urine Opiates Screen Ur Oxycodone Screen Urine Methadone Screen Ur Propoxyphene Screen Acetaminophen Ur Barbiturates Screen Ur Tricyclics Screen Ur Phencyclidine Scrn Ur Amphetamine Screen U Methamphetamines Scrn U Benzodiazepines Scrn Urine Cocaine Screen U Cannabinoids Screen Ethyl Alcohol PD Medical Decision Making - ED course Complexity details: reviewed results, re-evaluated patient, considered differential, d/w patient ED course: Patient denies SI/HI. She is AAOx3, conversant, cooperative. She declines mental health evaluation (specifically, declines telepsychiatric consult when I offer), and is asking to be discharged from ED. At this time, I have insufficient information to hold patient against her will (insufficient evidence that patient is imminent danger to self/others) and thus she is d/c from ED. Departure - Departure Disposition: 01 Home, Self Care Clinical Impression: Alcoholic intoxication Qualifiers: Complication of substance-induced condition: with delirium Qualified Code(s): F10.921 - Alcohol use, unspecified with intoxication delirium Condition: Good Instructions: ED Alcohol Intoxication Comments: Please follow-up with your primary care provider as well as with your mental health professional (such your therapist). Discharge Date/Time: 12/16/22 22:42
[2022-12-16 21:19] LABS: CLARITY,URINE CLEAR (CLEAR); HCG UR QUAL NEGATIVE
[2022-12-16 21:23] LABS: BACTERIA,URINE Few /HPF (None Seen); SQUAMOUS EPITHELIAL CELL,UR MANY Squamous (<= Few); WBC,URINE 0-3 /HPF (0-5)
[2022-12-16 21:24] LABS: AMPHETAMINE SCREEN,URINE NEGATIVE (NEGATIVE); BARBITURATE SCREEN,UR NEGATIVE (NEGATIVE); BENZODIAZEPINES SCREEN, URINE NEGATIVE (NEGATIVE); COCAINE SCREEN URINE NEGATIVE (NEGATIVE); METHADONE SCREEN, URINE NEGATIVE (NEGATIVE); METHAMPHETAMINES SCREEN, URINE NEGATIVE (NEGATIVE); OPIATE SCREEN, URINE NEGATIVE (NEGATIVE); OXYCODONE SCREEN, URINE NEGATIVE (NEGATIVE); PROPOXYPHENE SCREEN, URINE NEGATIVE (NEGATIVE); THC CANNABINOID SCREEN, URINE NEGATIVE (NEGATIVE); TRICYCLIC ANTIDEPRESSANT,URINE NEGATIVE (NEGATIVE)
[2022-12-16 22:36] VITALS: BP 114/66
== END 2022-12-16 22:42 | disposition home or self-care (01) ==
LOC: ED 19:29
DX: F10.121 Alcohol abuse with intoxication delirium (principal); Y90.6 Blood alcohol level of 120-199 mg/100 ml
CPT/HCPCS: 36415; 80053; 80306; 80307; 80320; 80329; 81001; 81003; 81025; 83690; 84443; 85025; 87086; 99283

== ENCOUNTER 2023-08-14 08:00 | Outpatient (CLI) | payer MEDICAID ==
[2023-08-14 16:27] LABS: BILIRUBIN,URINE NEGATIVE (NEGATIVE); GLUCOSE, URINE (UA) NEGATIVE (NEGATIVE); KETONES,URINE (UA) NEGATIVE (NEGATIVE); LEUKOCYTE ESTERASE, URINE NEGATIVE (NEGATIVE); NITRITE,URINE NEGATIVE (NEGATIVE); OCCULT BLOOD,URINE NEGATIVE (NEGATIVE); PROTEIN,URINE NEGATIVE (NEGATIVE); UROBILINOGEN,URINE 0.2 (NORMAL) E.U./dL (NORMAL)
[2023-08-14 16:47] LABS: BACTERIA,URINE Many /HPF (None Seen); CLARITY,URINE CLEAR (CLEAR); MUCUS,URINE Few Strands; RBC,URINE None Seen /HPF (0-5); SQUAMOUS EPITHELIAL CELL,UR MANY Squamous (<= Few); WBC,URINE 0-3 /HPF (0-5)
== END 2023-08-14 23:59 | disposition home or self-care (01) ==
LOC: LAB.WC 08:00
PROVIDERS: ATTEND Nurse Practitioner
DX: Z34.80 Encounter for supervision of other normal pregnancy, unspecified trimester (principal)
CPT/HCPCS: 81001; 87086

== ENCOUNTER 2023-09-04 17:45 | Outpatient (CLI) | payer MEDICAID ==
--- NOTE | 2023-09-05 13:19 | Ultrasound Report ---
PROCEDURE: OB 1st Trimester w/TV INDICATIONS: SUPERVISION OF OUTSIDE/PRIOR DATING DATA: Last menstrual period (LMP): 06/22/2023. LMP-based estimated date of delivery (NIRALI): 02/26/2024. First dating scan (date and location): 08/21/2023. TECHNIQUE: Real-time scanning was performed of the fetus and maternal pelvic organs, with image documentation. Endovaginal scanning was also performed to better visualize the fetus and maternal ovaries. COMPARISON: None. FINDINGS: Intrauterine gestational sac present. Embryo: An ill-defined cystic focus is visualized within the lower uterine segment with internal ech oes. No discrete gestational sac or pole is visualized. Heart rate: not applicable Other: Nabothian cysts are noted at the cervix. Measurement variability in dating: +/- 4 weeks by LMP, +/- 7 days by mean sac diameter (use before 6 weeks gestation if crown-rump length not able to be measured), +/- 5 days by crown-rump length (6-12 weeks gestation). Maternal organs: Ovaries appear within normal limits. IMPRESSION: 1. No sonographic evidence for intrauterine gestation. 2. Complex cystic structure is visualized within the lower uterine segment. The significance of this finding is unknown, but may correlate with a miscarriage in process. Reviewed by: Jennifer Mazariegos MD on 09/05/2023 1:17 PM PST Approved by: Jennifer Mazariegos MD on 09/05/2023 1:17 PM PST Station ID: [id number]
== END 2023-09-04 17:46 | disposition home or self-care (01) ==
LOC: DI 17:45
PROVIDERS: ATTEND Obstetrics & Gynecology
DX: O36.80X0 Pregnancy with inconclusive fetal viability, not applicable or unspecified (principal); Z3A.00 Weeks of gestation of pregnancy not specified
CPT/HCPCS: 36415; 84702